=== PATIENT | male | born 1980 | race Caucasian/White ===

== ENCOUNTER 2019-03-07 14:20 | Emergency (ER) | payer MEDICARE, OTHER ==
[~2019-03-07] VITALS: Ht 170.2 cm; Wt 117.9 kg
== END 2019-03-07 14:53 | disposition home or self-care (01) ==
LOC: ER 14:20
DX: M19.041 Primary osteoarthritis, right hand (principal); I10 Essential (primary) hypertension; Z88.2 Allergy status to sulfonamides; Z88.5 Allergy status to narcotic agent; Z88.1 Allergy status to other antibiotic agents
CPT/HCPCS: 96372; 99283-25; J1885